=== PATIENT | female | born 1985 | race Caucasian/White ===

== ENCOUNTER 2023-02-24 19:26 | Emergency (ER) | payer BC, OTHER ==
[2023-02-24 19:38] VITALS: BP 156/97; RESP 20; TEMP 97.6; BMI 58.4
[2023-02-24] MEDS ORDERED: BUPIVACAINE HCL/PF 0.5% (5MG/ML) 10 ML VIAL ONE (21:16)
[2023-02-24 22:32] VITALS: PULSE 107
== END 2023-02-24 23:46 | disposition home or self-care (01) ==
LOC: JER 19:26
DX: K08.89 Other specified disorders of teeth and supporting structures (principal)
CPT/HCPCS: 99282-25